=== PATIENT | female | born 1960 | race Caucasian/White ===

== ENCOUNTER 2017-08-15 07:39 | Emergency (ER) | payer OTHER ==
[2017-08-15 08:21] LABS: BASOPHIL % 0.4 % (0-2); PLATELET COUNT 346 x10^3mcL (130-400); RED CELL DISTRIBUTION WIDTH 13.9 % (11.5-14.5)
[2017-08-15 08:43] LABS: CALCIUM 9.6 mg/dL (8.5-10.1); CARBON DIOXIDE 26.4 mmol/L (21-32); CHLORIDE SERUM 101 mmol/L (98-107); CREATININE SERUM 0.9 mg/dL (0.6-1.0); GFR1 > 60 mL/min; GLUCOSE SERUM 111 mg/dL (74-106); POTASSIUM SERUM 3.9 mmol/L (3.5-5.1); SODIUM SERUM 139 mmol/L (136-145)
[2017-08-15 08:45] LABS: ALBUMIN 3.9 g/dL (3.4-5.0); ALKALINE PHOSPHATASE 96 U/L (46-116); ALT/SGPT 35 U/L (14-59); AST/SGOT 13 U/L (15-37); BILIRUBIN TOTAL 1.1 mg/dL (0.20-1.00); LIPASE 148 IU/L (73-393); TOTAL PROTEIN, SERUM 8.3 g/dL (6.4-8.2); TRIGLYCERIDES 55 mg/dL (<150)
[2017-08-15 08:46] LABS: CHOLESTEROL 202 mg/dL (<200); CHOLESTEROL/HDL RATIO 3.3; HDL CHOLESTEROL 61 mg/dL (40-60)
[2017-08-15 08:50] LABS: FREE T4 1.43 ng/dL (0.76-1.46); FREE THYROXINE INDEX 4.3 ug/dL (1.4-4.5); T3 TOTAL 0.97 ng/mL
[2017-08-15 08:58] LABS: UA SPECIFIC GRAVITY >=1.030 (1.005-1.035); microscopic required? YES; urine erythrocyte 2+ (NEGATIVE)
[2017-08-15 10:13] VITALS: BP 136/76
== END 2017-08-15 10:13 | disposition home or self-care (01) ==
LOC: ED 07:39
PROVIDERS: Specialist
DX: F41.9 Anxiety disorder, unspecified (principal); R00.2 Palpitations; I10 Essential (primary) hypertension; Z88.0 Allergy status to penicillin
CPT/HCPCS: 83880; 84439; J7030; Q0092